=== PATIENT | male | born 1960 | race Caucasian/White ===

== ENCOUNTER 2024-01-20 03:48 | Inpatient (IN) | payer MEDICARE, OTHER ==
[~2024-01-20] VITALS: Ht 167.6 cm; Wt 75.7 kg
[~2024-01-20 03:48] MED LIST: IBUP-2029 PO; LEVE500T19 PO; LORA0.5T2 PO; LORA1TAB PO; OMEP20CA14 PO; VENL-180 PO
[2024-01-20 04:02] VITALS: O2SAT 100
[2024-01-20] MEDS: ONDANSETRON 4MG ODT PO STA (04:13)
[2024-01-20 04:40] LABS: HEMATOCRIT. 44.7 % (42.0-52.0); HEMOGLOBIN. 15.1 g/dL (14.0-18.0); MEAN CORPUSCULAR HEMOGLOBIN 30.3 pg (28.0-32.0); MEAN CORPUSCULAR HGB CONC 33.7 g/dL (31.0-37.0); MEAN PLATELET VOLUME 7.2 fl (7.4-10.4); PLATELET 343 x1000/uL (130-400); RED BLOOD CELL COUNT 4.97 mill/uL (4.7-6.1); WHITE BLOOD COUNT 11.1 x1000/uL (4.5-11.0)
[2024-01-20 04:45] LABS: CHLORIDE 104 mEq/L (98-107); POTASSIUM 4.3 mEq/L (3.5-5.1); SODIUM 137 mEq/L (136-145)
[2024-01-20 04:46] LABS: CALCIUM 9.5 mg/dL (8.7-10.4); CARBON DIOXIDE 27 mEq/L (21-32)
[2024-01-20 04:51] LABS: CREATININE 1.1 mg/dL (0.6-1.3); GLUCOSE 126 mg/dL (70-105); UREA NITROGEN BLOOD 14 mg/dL (9-23)
[2024-01-20 05:14] LABS: DIFFERENTIAL COMMENT 1
[2024-01-20 07:19] LABS: PLATELET ESTIMATE NORMAL
[2024-01-20] MEDS: LEVOFLOXACIN 500MG PREMIX 100 ML IV ONE (09:00)
[2024-01-20 09:55] LABS: CLARITY URINE CLEAR (CLEAR); COLOR URINE YELLOW (YELLOW); GLUCOSE URINE NEGATIVE (NEGATIVE); KETONES URINE NEGATIVE (NEGATIVE); LEUKOCYTE ESTERASE URINE NEGATIVE (NEGATIVE); NITRITE URINE NEGATIVE (NEGATIVE); OCCULT BLOOD URINE TRACE (NEGATIVE); PROTEIN URINE TRACE (NEGATIVE); SPECIFIC GRAVITY URINE 1.009 (1.005-1.030); UROBILINOGEN URINE 0.2 E.U./dL (0.2-1.0)
[2024-01-20 10:33] LABS: SQUAMOUS EPITHELIAL CELL URINE NONE SEEN /lpf (RARE/1+); WBC URINE 0-2 /hpf (0-2)
[2024-01-20 10:34] LABS: RBC URINE 0-2 /hpf (0-2)
[2024-01-20 10:35] LABS: BACTERIA URINE TRACE
[2024-01-20] MEDS ORDERED: IPRATROPIUM/ALBUTEROL 0.5-3(2.5)MG/3ML NEB NEB PRN (13:15)
[2024-01-20] MEDS ORDERED: CLONIDINE 0.1MG TABLET PO PRN (13:15)
[2024-01-20] MEDS ORDERED: LORAZEPAM 0.5MG TABLET PO PRN (13:15)
[2024-01-20] MEDS ORDERED: ZOLPIDEM TARTRATE 5MG TABLET PO PRN (13:15)
[2024-01-20] MEDS ORDERED: ACETAMINOPHEN 325MG TABLET PO PRN (13:15)
[2024-01-20] MEDS: TAMSULOSIN HCL 0.4MG SR CAPSULE PO NR (13:22)
[2024-01-20] MEDS: SODIUM CHLORIDE 0.9% 1,000 ML IV SCH (13:26)
[2024-01-20] MEDS: ENOXAPARIN 40MG/0.4ML SYR SUBCUT SCH (15:35)
[2024-01-20 16:00] VITALS: BP 133/84; PULSE 101; RESP 18; TEMP 36.83628; O2SAT 100
[2024-01-20 20:00] VITALS: BP 129/72; PULSE 83; RESP 16; TEMP 36.78072; O2SAT 96
[2024-01-20] MEDS: LORAZEPAM 0.5MG TABLET PO SCH (21:18)
[2024-01-20] MEDS: LEVETIRACETAM 500MG TABLET PO SCH (21:18)
[2024-01-20] MEDS ORDERED: ACET-2708 PO (21:49)
[2024-01-20] MEDS ORDERED: TAMS-11 PO (21:49)
[2024-01-20] MEDS ORDERED: MECL-299 MT (21:49)
[2024-01-20] MEDS ORDERED: PANT20TA17 MT (21:49)
[2024-01-20] MEDS ORDERED: OLME20TA68 MT (21:49)
[2024-01-20] MEDS ORDERED: GABA-529 MT ×2 (21:49)
[2024-01-20] MEDS ORDERED: LORA-250 MT (21:49)
[2024-01-20] MEDS ORDERED: AMLO2.5T45 PO (21:49)
[2024-01-20] MEDS ORDERED: DORZ10DR9 EACHEYE (22:23)
[2024-01-21] VITALS: BP_SYST 115; BP_SYST 116; BP_DIAS 66; BP_DIAS 73; PULSE 74; PULSE 84; RESP 16; RESP 20; TEMP 35.78064; TEMP 36.50292; O2SAT 96; O2SAT 97
[2024-01-21 04:00] VITALS: BP 119/66; PULSE 96; RESP 22; TEMP 35.8362; O2SAT 98
[2024-01-21 08:00] VITALS: BP 119/66; PULSE 84; RESP 18; TEMP 36.50292; O2SAT 97
[2024-01-21] MEDS: PANTOPRAZOLE SODIUM 40 MG/VIAL IV SCH (10:24)
[2024-01-21] MEDS: LEVOFLOXACIN 500MG PREMIX 100 ML IV SCH (10:24)
[2024-01-21 11:50] LABS: BASOPHILS % 0.7 % (0.0-2.0); EOSINOPHILS % 0.7 % (0.0-5.0); HEMATOCRIT. 40.7 % (42.0-52.0); HEMOGLOBIN. 13.7 g/dL (14.0-18.0); LYMPHOCYTES % 27.2 % (20.0-50.0); MEAN CORPUSCULAR HEMOGLOBIN 30.7 pg (28.0-32.0); MEAN CORPUSCULAR HGB CONC 33.7 g/dL (31.0-37.0); MEAN PLATELET VOLUME 7.7 fl (7.4-10.4); MONOCYTES % 12.2 % (2.0-8.0); NEUTROPHILS % 59.2 % (40.0-76.0); PLATELET 282 x1000/uL (130-400); RED BLOOD CELL COUNT 4.47 mill/uL (4.7-6.1); RED CELL DISTRIBUTION WIDTH 13.1 % (11.6-14.6); WHITE BLOOD COUNT 3.8 x1000/uL (4.5-11.0)
[2024-01-21 11:52] LABS: CALCIUM 9.1 mg/dL (8.7-10.4); CARBON DIOXIDE 29 mEq/L (21-32); CHLORIDE 106 mEq/L (98-107); POTASSIUM 4.4 mEq/L (3.5-5.1); SODIUM 140 mEq/L (136-145)
[2024-01-21 11:58] LABS: CREATININE 0.9 mg/dL (0.6-1.3); GLUCOSE 96 mg/dL (70-105); UREA NITROGEN BLOOD 12 mg/dL (9-23)
[2024-01-21 12:00] VITALS: BP 122/78; PULSE 90; RESP 17; TEMP 36.50292
[2024-01-21 16:00] VITALS: BP 115/72; PULSE 70; RESP 18; TEMP 35.78064; O2SAT 96
[2024-01-21 16:55] LABS: *AMPHETAMINES SCREEN URINE NEGATIVE (NEGATIVE); *BARBITURATES SCREEN URINE NEGATIVE (NEGATIVE); *BENZODIAZEPINES SCREEN URINE NEGATIVE (NEGATIVE); *COCAINE SCREEN URINE NEGATIVE (NEGATIVE)
[2024-01-21 16:56] LABS: CANNABINOID URINE SCREEN NEGATIVE (NEGATIVE); ECSTASY MDMA SCREEN URINE NEGATIVE (NEGATIVE); METHADONE URINE SCREEN NEGATIVE (NEGATIVE); OPIATES URINE SCREEN NEGATIVE (NEGATIVE); PHENCYCLIDINE URINE SCREEN NEGATIVE (NEGATIVE)
[2024-01-21 20:00] VITALS: BP 119/72; PULSE 67; RESP 18; TEMP 36.50292; O2SAT 96
[2024-01-21] MEDS: TAMSULOSIN HCL 0.4MG SR CAPSULE PO SCH (21:36)
[2024-01-21] MEDS: LORAZEPAM 1MG TABLET PO SCH (21:36)
[2024-01-22] VITALS: BP 130/71; PULSE 59; RESP 18; TEMP 35.78064; O2SAT 98
[2024-01-22 04:00] VITALS: BP 112/61; PULSE 72; RESP 18; TEMP 36.61404; O2SAT 96
[2024-01-22 08:00] VITALS: BP 130/74; PULSE 59; RESP 19; TEMP 36.33624; O2SAT 98
[2024-01-22] MEDS ORDERED: TAMSULOSIN HCL 0.4MG SR CAPSULE PO SCH (09:00)
[2024-01-22] MEDS: AMLODIPINE 2.5MG TABLET PO SCH (09:17)
[2024-01-22] MEDS: POTASSIUM CHLORIDE 20MEQ TABLET SR PO SCH (09:17)
[2024-01-22] MEDS: ONDANSETRON HCL 4MG/2ML INJ IV PRN (09:18)
[2024-01-22] MEDS: LEVOFLOXACIN 750MG PREMIX 150 ML IV SCH (11:54)
[2024-01-22 12:00] VITALS: BP 126/70; PULSE 60; RESP 19; TEMP 36.28068; O2SAT 98
[2024-01-22] MEDS ORDERED: LEVO750T68 MT (14:50)
[2024-01-22 16:00] VITALS: BP 140/81; PULSE 73; RESP 18; TEMP 36.16956; O2SAT 94
== END 2024-01-22 19:00 | disposition home or self-care (01) | DRG 690 ==
LOC: ER 03:48 → 5WST 10:58 → EDBEDREQTM 11:03 → EDBEDREQ 11:03 → 6EST 01-21 02:11
PROVIDERS: ADMIT Internal Medicine; ATTEND Internal Medicine
DX: N39.0 Urinary tract infection, site not specified (principal); I10 Essential (primary) hypertension; E11.9 Type 2 diabetes mellitus without complications; G40.909 Epilepsy, unspecified, not intractable, without status epilepticus; E78.00 Pure hypercholesterolemia, unspecified; N40.0 Benign prostatic hyperplasia without lower urinary tract symptoms; Z79.899 Other long term (current) drug therapy
CPT/HCPCS: 36415; 74176; 80048; 80305; 81003; 85025; 93970; 99285; J1650; J1956; J2405; J2470; J7030; Q0162

== ENCOUNTER → 2025-02-19 | Day surgery (SDC) | payer MEDICARE, OTHER ==
[~2025-02-19] VITALS: Ht 167.6 cm; Wt 79.4 kg
[~2025-02-19] MED LIST changes: +ACETAMINOPHEN 1000MG/100ML 100 ML IV ONE; +AMLO2.5T45 PO; +BUPIVACAINE HCL/PF 0.5% (5MG/ML) 10ML ONE; +CEFAZOLIN SODIUM 1000MG/VIAL ONE; +DEXAMETHASONE 4MG/ML 1ML VIAL ONE; +DUTA0.5C37 PO; +FAMOTIDINE 20MG/2ML VIAL IV ONE; +GABA-529 MT; +GLYCOPYRROLATE 0.2 MG/ML 2ML VIAL ONE; +HYDRALAZINE 20MG/ML VIAL IV PRN; +HYDROMORPHONE HCL/PF 1MG/ML INJ IV PRN; +HYDROMORPHONE HCL/PF 1MG/ML INJ ONE; -IBUP-2029 PO; +KETOROLAC 30MG/ML VIAL ONE; +LABETALOL 5MG/ML 4ML INJ IV PRN; +LORA-250 MT; -LORA0.5T2 PO; -LORA1TAB PO; +MIDAZOLAM HCL 2 MG/2 ML VIAL ONE; +OLME20TA68 MT; -OMEP20CA14 PO; +ONDA4TAB50 PO; +ONDANSETRON HCL 4MG/2ML INJ IV PRN; +ONDANSETRON HCL 4MG/2ML INJ ONE; +PANT20TA17 PO; +PROPOFOL 200MG/20ML VIAL IV ONE; +ROCURONIUM BROMIDE 10MG/ML VIAL 5ML IV ONE; +SKIN ADHESIVE 0.7 GM EA TOP ONE; +TAMS-54 PO
[2025-02-19] MEDS: LACTATED RINGERS 1,000 ML IV SCH (07:38)
== END | disposition home or self-care (01) ==
LOC: OR 05:30
PROVIDERS: ATTEND Surgery
DX: K80.10 Calculus of gallbladder with chronic cholecystitis without obstruction (principal); I10 Essential (primary) hypertension; Z79.899 Other long term (current) drug therapy; Z98.890 Other specified postprocedural states
CPT/HCPCS: 47562; 88304; J0131; J0665; J0690; J1100; J1308; J3490 ×2; J1885; J2250; J2405; J2704; J1171; J7030; A4615